=== PATIENT | female | born 1995 | race Caucasian/White ===

== ENCOUNTER 2023-11-24 21:31 | Inpatient (IN) ==
[2023-11-24] MEDS ORDERED: Buffered Lidocaine 1% SYRIN 1 ml INTRADERM ONE (22:56)
[2023-11-24] MEDS ORDERED: Lactated Ringers 1000 ml BAG 1,000 ML IV ONE (22:56)
[2023-11-24] MEDS ORDERED: Lactated Ringers 1000 ml BAG 1,000 ML IV SCH (23:00)
[2023-11-24] MEDS: Penicillin G Potassium IV 5,000,000 UNITS in NS 0.9% 100 ml BAG 100 ML IVPB ONE (23:58)
[2023-11-25 00:20] LABS: ABS Basophils 0.1 10^3/uL (0.0-0.1); ABS Eosinophils 0.2 10^3/uL (0.0-0.5); ABS Lymphocytes 2.8 10^3/uL (1.0-4.8); ABS Monocytes 1.2 10^3/uL (0.0-0.9); ABS Neutrophils 9.6 10^3/uL (1.5-7.6); ABS Nucleated RBC 0.01 10^3/ul; Eosinophil % 1.6 %; Hematocrit 34.9 % (35-45); Hemoglobin 11.7 g/dL (11.5-14.3); Lymphocyte % 19.9 %; Mean Corpuscular Hemoglobin 28.1 pg (27-33); Mean Corpuscular Hgb Conc 33.6 g/dL (31-36); Mean Corpuscular Volume 83.7 fL (80-97); Mean Platelet Volume 7.9 fL (7.5-11.2); Platelet Count 268 10^3/uL (150-450); Red Blood Count 4.17 10^6/uL (3.63-4.92); Red Cell Distribution Width 13.7 % (12-17)
[2023-11-25 00:41] LABS: Urine Benzodiazepine Screen None Detected (None Detect); Urine Cannabinoids Screen None Detected (None Detect); Urine Opiates Screen None Detected (None Detect)
[2023-11-25] MEDS: Prochlorperazine 5 mg/ml 2 ml VIAL (10 mg) IV ONE (04:01)
[2023-11-25] MEDS: Morphine 10 MG/ML VIAL (1 ml) IV ONE (04:02)
[2023-11-25] MEDS: Penicillin G Potassium IV 3,000,000 UNITS in NS 0.9% 100 ml BAG 100 ML IVPB SCH (04:02)
[2023-11-25] MEDS: Oxytocin in LR 20,000 MILLI.UNIT/1,000 ML BAG IV SCH (07:02)
[2023-11-25] MEDS: Lidocaine 1% VIAL 10 MG/ML 30 ML VIAL INJ PRN (07:12)
[2023-11-25] MEDS ORDERED: Glycerin ADULT 2.4 gm SUPP PR PRN (07:32)
[2023-11-25] MEDS: Dibucaine 1% OINT 28.35 GM TUBE PR PRN (09:17)
[2023-11-25] MEDS: Witch Hazel PAD JAR TOPICAL PRN (09:17)
[2023-11-25] MEDS ORDERED: Oxytocin 10 UNITS/ML 1 ML VIAL ONE (10:21)
[2023-11-26 06:24] LABS: ABS Basophils 0.1 10^3/uL (0.0-0.1); ABS Eosinophils 0.2 10^3/uL (0.0-0.5); ABS Lymphocytes 3.1 10^3/uL (1.0-4.8); ABS Monocytes 1.1 10^3/uL (0.0-0.9); ABS Neutrophils 11.2 10^3/uL (1.5-7.6); ABS Nucleated RBC 0.02 10^3/ul; Eosinophil % 1.1 %; Hematocrit 27.8 % (35-45); Hemoglobin 9.4 g/dL (11.5-14.3); Lymphocyte % 19.7 %; Mean Corpuscular Hemoglobin 28.6 pg (27-33); Mean Corpuscular Hgb Conc 33.8 g/dL (31-36); Mean Corpuscular Volume 84.7 fL (80-97); Mean Platelet Volume 7.6 fL (7.5-11.2); Nucleated Red Blood Cells % 0.1 %/100WBC (0.0-0.8); Platelet Count 218 10^3/uL (150-450); Red Blood Count 3.29 10^6/uL (3.63-4.92); Red Cell Distribution Width 14.3 % (12-17); White Blood Count 15.7 10^3/uL (3.8-11.8)
[2023-11-27 09:04] VITALS: BP 121/62
== END 2023-11-27 12:15 | disposition home or self-care (01) | DRG 542 ==
LOC: MCHOBOUT 21:31 → MCHOB 22:53
PROVIDERS: ADMIT Midwife; ATTEND Midwife